=== PATIENT | female | born 1985 | race Two or more races ===

== ENCOUNTER 2021-06-24 19:27 | Emergency (ER) | payer SELFPAY ==
[~2021-06-24] VITALS: Ht 157.5 cm; Wt 52.2 kg
--- NOTE | 2021-06-24 20:18 | NUR ---
PT AAOX4. BIBS FOR C/O R KNEE PAIN "I WAS WALKING ON THURSDAY." NO TRAUMA NOTED. VSS.
[2021-06-24] MEDS ORDERED: IBUP-1955 PO (21:53)
--- NOTE | 2021-06-24 22:10 | NUR ---
EMT AT BEDSIDE FOR ROSSY WRAP
--- NOTE | 2021-06-24 22:12 | NUR ---
Patient discharged to home in stable condition. Written and verbal after care instructions given. Patient verbalizes understanding of instruction and RX.
[2021-06-24 22:13] VITALS: BP 119/73
== END 2021-06-24 22:13 | disposition home or self-care (01) ==
LOC: ER 19:43
DX: M25.561 Pain in right knee (principal); Z79.899 Other long term (current) drug therapy
CPT/HCPCS: 73564-TC; 93971-TC

== ENCOUNTER 2021-07-21 14:09 | Emergency (ER) | payer SELFPAY ==
[~2021-07-21] VITALS: Ht 160 cm; Wt 52.2 kg
[~2021-07-21 14:09] MED LIST: IBUP-1955 PO
--- NOTE | 2021-07-21 14:09 | NUR ---
PT BIB SELF C/O LUQ ABDOMINAL PAIN SINCE THURSDAY. DENIES N/V/D. PT IS AAOX4, NOT IN RESPIRATORY DISTRESS, V/S STABLE, KEPT RESTED AND COMFORTABLE. WILL CONTINUE TO MONITOR.
--- NOTE | 2021-07-21 14:44 | NUR ---
SEEN AND EXMAINED BY .
--- NOTE | 2021-07-21 14:50 | NUR ---
IV LINE ESTABLISHED BLOOD DRAWN AND SENT TO LAB.
[2021-07-21 15:07] LABS: BASOPHILS # (AUTO) 0.1 K/uL (0.0-0.2); BASOPHILS % (AUTO) 1.7 % (0.0-2.0); EOSINOPHILS % (AUTO) 0.6 % (0.0-6.0); HEMATOCRIT 35 % (33-45); HEMOGLOBIN 11.5 g/dL (11.5-14.8); LYMPHOCYTES # (AUTO) 1.2 K/uL (0.8-4.8); MEAN CORPUSCULAR HGB CONC 33 g/dl (31.0-36.0); MEAN CORPUSCULAR VOLUME 85 fL (82-100); MONOCYTES # (AUTO) 0.6 K/uL (0.1-1.30); MONOCYTES % (AUTO) 10.6 % (2.0-12.0); NEUTROPHILS # (AUTO) 3.4 K/uL (1.8-8.9); NEUTROPHILS % (AUTO) 64.1 % (43.0-81.0); PLATELET COUNT (AUTO) 438 K/uL (150-450); RED BLOOD CELL COUNT(AUTO) 4.15 MIL/uL (4.0-5.2); WHITE BLOOD COUNT (AUTO) 5.4 K/uL (4.3-11.0)
[2021-07-21 15:14] LABS: BILIRUBIN,URINE Negative (NEGATIVE); COLOR,URINE YELLOW (YELLOW); LEUKOCYTE ESTERASE ,URINE Negative (NEGATIVE); NITRITE, URINE Negative (NEGATIVE); PH,URINE 6.5 (5.0-8.0); PROTEIN,URINE Negative (NEGATIVE); UGLUCOSE Negative (NEGATIVE); UROBILINOGEN,URINE 0.2 EU/dL (0.2)
[2021-07-21 15:14] LABS: CALCIUM, SERUM 8.9 mg/dL (8.5-10.1); CREATININE 0.8 mg/dL (0.6-1.3); POTASSIUM 3.6 mmol/L (3.5-5.1)
[2021-07-21 15:16] LABS: BACTERIA,URINE Rare /HPF (None Seen); SQUAMOUS EPITHELIAL CELL,UR Few /HPF (None Seen); WBC,URINE NONE SEEN /HPF (0-3)
[2021-07-21 15:21] LABS: ALBUMIN 3.9 g/dL (3.4-5.0); BILIRUBIN,DIRECT 0.1 mg/dL (0.0-0.2); BILIRUBIN,TOTAL 0.2 mg/dL (0.2-1.0); TOTAL PROTEIN, SERUM 8.3 g/dL (6.4-8.2)
[2021-07-21] MEDS ORDERED: ONDANSETRON HCL/PF 4 MG/2 ML VIAL ONE (15:24)
[2021-07-21] MEDS ORDERED: KETOROLAC TROMETHAMINE INJ 30 MG/ML VIAL ONE (15:24)
[2021-07-21] MEDS ORDERED: FAMOTIDINE/PF INJ 20 MG/2 ML VIAL IV ONE (15:25)
--- NOTE | 2021-07-21 15:25 | NUR ---
PT IS WHEELED TO CT SCAN VIA [facility].
[2021-07-21] MEDS: FAMOTIDINE/PF INJ 20 MG/2 ML VIAL IV ONE (15:35)
[2021-07-21] MEDS: IV NS 0.9% 1,000 ML BAG IV ONE (15:35)
[2021-07-21] MEDS: KETOROLAC TROMETHAMINE INJ 30 MG/ML VIAL IV ONE (15:36)
[2021-07-21] MEDS: ONDANSETRON HCL/PF 4 MG/2 ML VIAL IVP ONE (15:36)
[2021-07-21] MEDS ORDERED: IBUP-1957 PO (18:04)
--- NOTE | 2021-07-21 18:16 | NUR ---
IV removed. Catheter intact and site benign. Pressure and 4x4 applied to site. No bleeding noted. Patient discharged to home in stable condition. Written and verbal after care instructions given. Patient verbalizes understanding of instruction.
[2021-07-21 18:17] VITALS: BP 112/58
== END 2021-07-21 18:17 | disposition home or self-care (01) ==
LOC: ER 14:11
DX: R10.12 Left upper quadrant pain (principal); R31.9 Hematuria, unspecified
CPT/HCPCS: 36415; 74176; 80048; 80076; 81001; 83690; 84703; 85025; 96361; 96374; 96375; 99284; J1885; J2405; J3490; J7030